=== PATIENT | female | born 1955 | race Caucasian/White ===

== ENCOUNTER → 2020-09-21 | Outpatient (CLI) | payer OTHER | END | disposition home or self-care (01) | LOC: CFH 08:12 | PROVIDERS: ATTEND Nurse Practitioner Family | DX: Z12.31 Encounter for screening mammogram for malignant neoplasm of breast (principal) | CPT/HCPCS: 77063; 77067 ==

== ENCOUNTER 2020-11-26 15:13 | Inpatient (IN) | payer OTHER ==
[~2020-11-26] VITALS: Ht 154.9 cm; Wt 63.9 kg
[2020-11-26] MEDS ORDERED: ROSU5TAB PO (15:54)
[2020-11-26] MEDS ORDERED: LEVO25TA2 PO (15:54)
[2020-11-26] MEDS ORDERED: LISI40TA9 PO (15:55)
[2020-11-26] MEDS ORDERED: HYDR25TA6 PO (15:55)
--- NOTE | 2020-11-26 15:55 | NUR ---
PT IS A 65F COMPLAINING OF RIGHT LEG PAIN X4 DAYS THAT HAS NOW MOVED TO HER ABDOMEN. THE PAIN IS DIFFUSE ACROSSS THE ABDOMEN AND IS A CONSTANT SHARP PAIN. SHE HAS NAUSEA BUT HAS NOT VOMITED. REGULAR BOWEL MOVEMENTS. SPOUSE AT BEDSIDE. CONTINUOUS SP02 AND CYCLING VITALS. CALL LIGHT WITHIN REACH.
[2020-11-26] MEDS ORDERED: ONDANSETRON 2MG/ML, 2ML ONE (16:11)
[2020-11-26] MEDS ORDERED: MORPHINE SULFATE 4 MG/ML, 1ML ONE (16:11)
[2020-11-26] MEDS ORDERED: SODIUM CHLORIDE 0.9% 1,000ML IVBOLUS ONE ×2 (16:30→18:00)
[2020-11-26] MEDS ORDERED: ONDANSETRON 2MG/ML, 2ML IVPush ONE (16:30)
[2020-11-26] MEDS ORDERED: SODIUM CHLORIDE FLUSH 10ML SYR IVF ONE (16:30)
[2020-11-26] MEDS ORDERED: MORPHINE SULFATE 4 MG/ML, 1ML IVPush PRN (16:30)
[2020-11-26 16:33] LABS: BASOPHILS % (AUTO) 0 % (0-1); EOSINOPHILS % (AUTO) 0 % (1-7); LYMPHOCYTES % (AUTO) 4 % (22-44); MEAN CORPUSCULAR HEMOGLOBIN 30.4 pg (27.0-34.8); MEAN CORPUSCULAR HGB CONC 34.1 g/dL (32.4-35.8); MEAN PLATELET VOLUME 8.4 fL (7.4-10.4); MONOCYTES % (AUTO) 9 % (2-9); NEUTROPHILS % (AUTO) 86 % (42-75); PLATELET COUNT 211 x10^3/uL (130-400); RED BLOOD COUNT 3.99 x10^6/uL (3.82-5.3); RED CELL DISTRIBUTION WIDTH 13.9 % (9.6-15.2)
[2020-11-26 16:34] LABS: ALANINE AMINOTRANSFERASE 33 U/L (12-78); ALBUMIN 2.9 g/dL (3.4-5.0); ANION GAP 8 mmol/L (5-15); CALCIUM 8.8 mg/dL (8.5-10.1); CHLORIDE 95 mmol/L (98-107); CREATININE 1.09 mg/dL (0.55-1.02)
[2020-11-26 16:36] LABS: ALKALINE PHOSPHATASE 72 U/L (45-117); BILIRUBIN,TOTAL 0.7 mg/dL (0.2-1.0); TOTAL PROTEIN 7.1 g/dL (6.4-8.2)
--- NOTE | 2020-11-26 16:38 | NUR ---
PT RA SATURATION DROPPED TO 85% ATER MORPHINE. PLACED HER ON 2L O2 NC, PATIENT BACK UP TO 94. URINE SPECIMENT SENT TO LAB.
[2020-11-26 16:56] LABS: MICROSCOPIC INDICATED
--- NOTE | 2020-11-26 17:06 | NUR ---
PT TO CT VIA [facility]
[2020-11-26 17:08] LABS: MD SCAN
[2020-11-26] MEDS ORDERED: OMNIPAQUE 350 MG/ML, 100ML BOTTLE ONE (17:20)
--- NOTE | 2020-11-26 17:24 | NUR ---
PT BACK FROM CT. DENIES NEED FOR SECOND DOSE OF MORPHINE AT THIS TIME
[2020-11-26] MEDS ORDERED: PIPERACILLIN/TAZO/PMX 3.375GM 50 ML ONE ×2 (17:58→18:38)
[2020-11-26] MEDS ORDERED: PIPERACILLIN/TAZO/PMX 3.375GM 50 ML IV ONE (18:00)
--- NOTE | 2020-11-26 18:13 | NUR ---
SECOND LITER OF NS INFUSING, WAITING FOR BLOOD CX TO BE DRAWN BEFORE HANGING ANTIBIOTICS.
--- NOTE | 2020-11-26 18:43 | NUR ---
ANTIBIOTICS HUNG, PT RESTING COMFORTABLY WITH AT BEDSIDE. CALL LIGHT WITHIN REACH. NO FURTHER NEEDS AT THIS TIME
--- NOTE | 2020-11-26 18:53 | NUR ---
REPORT TO JORDAN SCHAFFER.
--- NOTE | 2020-11-26 18:54 | NUR ---
Report from Cecilio Salas. First contact with pt, pt pain 5/10 tolerable no n/v. Requested pt get completly undressed, prepare for OR after surgeon consult. IV abx running no rxn. VSS. Pt is NPO. Will continue to monitor.
--- NOTE | 2020-11-26 19:23 | NUR ---
IR team here to take pt for drain. Requested update from ERP with family on POC as they are unaware of POC.
--- NOTE | 2020-11-26 19:36 | NUR ---
Preprocedural sedation portion done by this RN. Report to IR RN. Family and pt spoke with ERP and IR RN. Report by this RN to med/oral surgery assistant Miriam. Pt to go to IR now, then rm [id number]. provided room number. AIDET provided. All belongings to be tx with pt to IR/floor.
[2020-11-26] MEDS ORDERED: NALOXONE 1 MG/ML, 2ML ONE (19:45)
[2020-11-26] MEDS ORDERED: FLUMAZENIL 0.1 MG/1 ML, 5ML ONE (19:45)
[2020-11-26] MEDS ORDERED: MIDAZOLAM 1 MG/ML, 5ML ONE (19:45)
[2020-11-26] MEDS ORDERED: FENTANYL PF 100 MCG/2ML ONE (19:45)
[2020-11-26] MEDS ORDERED: LIDOCAINE 1%, 20ML ONE (20:00)
[2020-11-26 21:00] VITALS: BP 101/60
[2020-11-26] MEDS: FENTANYL PF 100 MCG/2ML IVPush PRN ×2 (21:44→22:52)
[2020-11-26] MEDS ORDERED: DOCU-131 PO (22:22)
[2020-11-26] MEDS: D5%-0.9% NACL+KCL 20MEQ 1,000 ML IV SCH (22:52)
[2020-11-26] MEDS: POTASSIUM CHLORIDE 40 MEQ in LACTATED RINGERS 1,000 ML IV SCH (23:00)
[2020-11-26] MEDS ORDERED: LEVOTHYROXINE MC SCH (23:00)
[2020-11-26] MEDS ORDERED: ONDANSETRON 2MG/ML, 2ML IVPush PRN (23:00)
[2020-11-26] MEDS ORDERED: morphine SULFATE 10 MG/ML, 1ML IVPush PRN (23:00)
[2020-11-26] MEDS ORDERED: LABETALOL 5MG/ML, 20ML IVPush PRN (23:00)
[2020-11-26] MEDS ORDERED: MELATONIN 5 MG TABLET PO PRN (23:00)
[2020-11-27 00:22] VITALS: BP 96/65
[2020-11-27] MEDS: PIPERACILLIN/TAZO/PMX 3.375GM 50 ML IV SCH ×3 (00:23→17:42)
[2020-11-27] MEDS: FENTANYL PF 100 MCG/2ML IVPush PRN ×4 (00:27→10:35)
[2020-11-27 04:05] VITALS: BP 87/50
[2020-11-27 05:37] LABS: BASOPHILS % (AUTO) 0 % (0-1); EOSINOPHILS % (AUTO) 0 % (1-7); LYMPHOCYTES % (AUTO) 7 % (22-44); MEAN CORPUSCULAR HEMOGLOBIN 30.6 pg (27.0-34.8); MEAN PLATELET VOLUME 8.4 fL (7.4-10.4); MONOCYTES % (AUTO) 6 % (2-9); NEUTROPHILS % (AUTO) 88 % (42-75); PLATELET COUNT 214 x10^3/uL (130-400); RED BLOOD COUNT 3.57 x10^6/uL (3.82-5.3); RED CELL DISTRIBUTION WIDTH 13.9 % (9.6-15.2)
[2020-11-27 05:45] LABS: ANION GAP 8 mmol/L (5-15); CALCIUM 8.3 mg/dL (8.5-10.1); CHLORIDE 105 mmol/L (98-107)
[2020-11-27 05:47] LABS: CREATININE 1.09 mg/dL (0.55-1.02)
[2020-11-27] MEDS ORDERED: LEVOTHYROXINE 25 MCG TABLET PO SCH (06:00)
[2020-11-27 07:02] LABS: MD SCAN
[2020-11-27] MEDS: POTASSIUM CHLORIDE 40 MEQ in LACTATED RINGERS 1,000 ML IV SCH (07:10)
[2020-11-27 08:00] VITALS: BP 93/56
[2020-11-27] MEDS: HYDROCHLOROTHIAZIDE 25 MG TABLET PO SCH (09:00)
[2020-11-27] MEDS: LISINOPRIL 40 MG TABLET PO SCH (09:00)
[2020-11-27] MEDS: D5%-0.9% NACL+KCL 20MEQ 1,000 ML IV SCH (09:29)
[2020-11-27] MEDS ORDERED: FENTANYL PF 250 MCG/5ML ONE (11:10)
[2020-11-27] MEDS ORDERED: MIDAZOLAM 1 MG/ML, 2ML ONE (11:10)
[2020-11-27] MEDS ORDERED: DEXAMETHASONE 4 MG/ML, 1ML ONE (11:43)
[2020-11-27] MEDS ORDERED: VASOPRESSIN 20 UNIT/ML, 1ML ONE ×2 (11:59)
[2020-11-27] MEDS ORDERED: DIPHENHYDRAMINE 50 MG/ML, 1ML IVPush PRN (12:30)
[2020-11-27] MEDS ORDERED: MEPERIDINE/PF 25MG/0.5ML IVPush PRN (12:30)
[2020-11-27] MEDS ORDERED: LABETALOL 5MG/ML, 20ML IV PRN (12:30)
[2020-11-27] MEDS ORDERED: PROMETHAZINE 25 MG/ML, 1ML IVPush PRN (12:30)
[2020-11-27] MEDS ORDERED: HALOPERIDOL 5 MG/ML IV PRN (12:30)
[2020-11-27] MEDS ORDERED: HYDROmorphone 1 MG/ML, 1ML INJ IVPush PRN (12:30)
[2020-11-27] MEDS ORDERED: hydrALAzine 20 MG/ML, 1ML IV PRN (12:30)
[2020-11-27] MEDS ORDERED: NEOSTIGMINE 1 MG/ML, 10ML ONE (12:39)
[2020-11-27] MEDS ORDERED: SUGAMMADEX 200 MG/2 ML IVPush ONE (12:39)
[2020-11-27] MEDS ORDERED: ONDANSETRON 2MG/ML, 2ML ONE (12:39)
[2020-11-27] MEDS ORDERED: GLYCOPYRROLATE 0.2MG/1ML, 5ML ONE (12:39)
[2020-11-27] MEDS ORDERED: ROCURONIUM 10MG/ML,5ML ONE (12:39)
[2020-11-27] MEDS ORDERED: PROPOFOL 10 MG/ML, 20ML ONE (12:39)
[2020-11-27] MEDS ORDERED: CEFAZOLIN 1,000 MG ONE (12:39)
[2020-11-27] MEDS ORDERED: SUCCINYLCHOLINE 20 MG/ML, 10ML ONE (12:39)
[2020-11-27] MEDS ORDERED: FENTANYL PF 100 MCG/2ML ONE (13:06)
[2020-11-27] MEDS ORDERED: MEPERIDINE/PF 25MG/ML,1ML ONE (13:06)
[2020-11-27] MEDS ORDERED: OXYcodone 5 MG/5 ML ORAL.SOL UDC ONE (13:08)
[2020-11-27] MEDS: FENTANYL PF 100 MCG/2ML IV PRN ×3 (13:25→13:40)
[2020-11-27] MEDS ORDERED: LEVO50TA5 PO (13:34)
[2020-11-27] MEDS ORDERED: OXYcodone 5 MG/5 ML ORAL.SOL UDC PO PRN (14:00)
[2020-11-27] MEDS ORDERED: POTASSIUM CHLORIDE 40 MEQ in SODIUM CHLORIDE 0.9% 500 ML IV ONE (15:30)
[2020-11-27 19:33] VITALS: BP 78/49
[2020-11-27 19:45] VITALS: BP 88/52
[2020-11-27] MEDS: ATORVASTATIN 20 MG TABLET PO SCH (21:26)
[2020-11-28] VITALS (7 sets, daily range): BP systolic 85–106; BP diastolic 44–63
[2020-11-28] MEDS: D5%-0.9% NACL+KCL 20MEQ 1,000 ML IV SCH ×3 (00:31→23:51)
[2020-11-28] MEDS: PIPERACILLIN/TAZO/PMX 3.375GM 50 ML IV SCH ×5 (00:31→23:51)
[2020-11-28] MEDS ORDERED: SODIUM CHLORIDE 0.9%, 500ML IVBOLUS ONE (01:25)
[2020-11-28] MEDS: FENTANYL PF 100 MCG/2ML IVPush PRN ×3 (02:14→23:01)
[2020-11-28 05:28] LABS: BASOPHILS % (AUTO) 0 % (0-1); EOSINOPHILS % (AUTO) 0 % (1-7); LYMPHOCYTES % (AUTO) 5 % (22-44); MEAN CORPUSCULAR HEMOGLOBIN 30.1 pg (27.0-34.8); MEAN CORPUSCULAR HGB CONC 33.6 g/dL (32.4-35.8); MEAN PLATELET VOLUME 8.2 fL (7.4-10.4); MONOCYTES % (AUTO) 6 % (2-9); NEUTROPHILS % (AUTO) 89 % (42-75); PLATELET COUNT 232 x10^3/uL (130-400); RED BLOOD COUNT 3.23 x10^6/uL (3.82-5.3); RED CELL DISTRIBUTION WIDTH 13.9 % (9.6-15.2)
[2020-11-28 05:30] LABS: CHLORIDE 110 mmol/L (98-107)
[2020-11-28 05:34] LABS: ANION GAP 4 mmol/L (5-15); CALCIUM 8.4 mg/dL (8.5-10.1); CREATININE 1.01 mg/dL (0.55-1.02)
[2020-11-28] MEDS ORDERED: LEVOTHYROXINE 50 MCG TABLET PO SCH (06:00)
[2020-11-28 06:08] LABS: MD SCAN
[2020-11-28] MEDS: LEVOTHYROXINE 50 MCG TABLET PO SCH (06:21)
[2020-11-28] MEDS ORDERED: LACTATED RINGERS 1,000 ML IVBOLUS ONE (08:00)
[2020-11-28] MEDS: LISINOPRIL 40 MG TABLET PO SCH (09:00)
[2020-11-28] MEDS: HYDROCHLOROTHIAZIDE 25 MG TABLET PO SCH (09:00)
[2020-11-28] MEDS: DOCUSATE 100 MG CAPSULE PO PRN (09:14)
[2020-11-28] MEDS: OXYcodone/APAP 5/325MG TABLET PO PRN ×4 (09:49→23:01)
[2020-11-28] MEDS: SIMETHICONE 80 MG CHEW TAB PO SCH ×3 (12:50→20:24)
[2020-11-28] MEDS: ATORVASTATIN 20 MG TABLET PO SCH (20:23)
[2020-11-29] MEDS: FENTANYL PF 100 MCG/2ML IVPush PRN ×2 (01:26→20:54)
[2020-11-29 03:07] VITALS: BP 92/62
[2020-11-29] MEDS: OXYcodone/APAP 5/325MG TABLET PO PRN ×5 (03:33→20:56)
[2020-11-29 05:03] LABS: BASOPHILS % (AUTO) 0 % (0-1); EOSINOPHILS % (AUTO) 1 % (1-7); LYMPHOCYTES % (AUTO) 9 % (22-44); MEAN CORPUSCULAR HEMOGLOBIN 30.3 pg (27.0-34.8); MEAN CORPUSCULAR HGB CONC 33.4 g/dL (32.4-35.8); MEAN PLATELET VOLUME 7.6 fL (7.4-10.4); MONOCYTES % (AUTO) 7 % (2-9); NEUTROPHILS % (AUTO) 82 % (42-75); PLATELET COUNT 258 x10^3/uL (130-400); RED BLOOD COUNT 3.16 x10^6/uL (3.82-5.3); RED CELL DISTRIBUTION WIDTH 14.2 % (9.6-15.2)
[2020-11-29 05:04] LABS: MD NO
[2020-11-29 05:11] LABS: ANION GAP 3 mmol/L (5-15); CALCIUM 8.8 mg/dL (8.5-10.1); CHLORIDE 110 mmol/L (98-107)
[2020-11-29 05:12] LABS: CREATININE 0.85 mg/dL (0.55-1.02)
[2020-11-29 06:25] VITALS: BP 137/87
[2020-11-29] MEDS: PIPERACILLIN/TAZO/PMX 3.375GM 50 ML IV SCH ×3 (06:28→18:13)
[2020-11-29] MEDS: LEVOTHYROXINE 50 MCG TABLET PO SCH (06:29)
[2020-11-29] MEDS: HYDROCHLOROTHIAZIDE 25 MG TABLET PO SCH (08:13)
[2020-11-29] MEDS: SIMETHICONE 80 MG CHEW TAB PO SCH ×4 (08:13→20:56)
[2020-11-29] MEDS: LISINOPRIL 40 MG TABLET PO SCH (08:13)
[2020-11-29] MEDS: D5%-0.9% NACL+KCL 20MEQ 1,000 ML IV SCH ×2 (08:14→16:21)
[2020-11-29] MEDS: METOCLOPRAMIDE 5 MG/ML, 2ML IV SCH ×3 (10:11→20:56)
[2020-11-29 14:10] VITALS: BP 112/70
[2020-11-29 18:24] VITALS: BP 103/67
[2020-11-29] MEDS: ATORVASTATIN 20 MG TABLET PO SCH (20:56)
[2020-11-30] MEDS: PIPERACILLIN/TAZO/PMX 3.375GM 50 ML IV SCH ×2 (00:15→05:31)
[2020-11-30] MEDS: D5%-0.9% NACL+KCL 20MEQ 1,000 ML IV SCH (01:17)
[2020-11-30] MEDS: OXYcodone/APAP 5/325MG TABLET PO PRN ×5 (01:17→21:07)
[2020-11-30 01:21] VITALS: BP 106/63
[2020-11-30] MEDS: LEVOTHYROXINE 50 MCG TABLET PO SCH (05:31)
[2020-11-30] MEDS: DOCUSATE 100 MG CAPSULE PO PRN ×3 (05:31→16:03)
[2020-11-30 06:00] LABS: MEAN CORPUSCULAR HGB CONC 33.7 g/dL (32.4-35.8); MEAN PLATELET VOLUME 7.5 fL (7.4-10.4); PLATELET COUNT 340 x10^3/uL (130-400); RED BLOOD COUNT 3.61 x10^6/uL (3.82-5.3); RED CELL DISTRIBUTION WIDTH 14.1 % (9.6-15.2)
[2020-11-30 06:13] LABS: ANION GAP 6 mmol/L (5-15); CALCIUM 8.8 mg/dL (8.5-10.1); CHLORIDE 105 mmol/L (98-107)
[2020-11-30 06:14] LABS: CREATININE 0.69 mg/dL (0.55-1.02)
[2020-11-30 06:36] LABS: MD YES
[2020-11-30 06:37] LABS: EOS% (MANUAL) 7 % (1-7); LYMPHS% (MANUAL) 10 % (22-44); METAMYELOCYTES% (MANUAL) 1 % (0-1); MONOS% (MANUAL) 3 % (2-9); MYELOCYTES% (MANUAL) 1 % (0-0); SEGS% (MANUAL) 78 % (42-75)
[2020-11-30 06:38] LABS: <PLATELET ESTIMATE> ADEQUATE; <PLT MORPHOLOGY> NORMAL PLT MORPH; <RBC MORPHOLOGY> NORMAL
[2020-11-30] MEDS: HYDROCHLOROTHIAZIDE 25 MG TABLET PO SCH (09:00)
[2020-11-30 09:24] VITALS: BP 132/79
[2020-11-30] MEDS: SIMETHICONE 80 MG CHEW TAB PO SCH ×4 (10:45→21:07)
[2020-11-30] MEDS: LISINOPRIL 40 MG TABLET PO SCH (10:45)
[2020-11-30] MEDS: metroNIDAZOLE 500 MG TABLET PO SCH ×2 (10:45→18:46)
[2020-11-30] MEDS: METOCLOPRAMIDE 5 MG/ML, 2ML IV SCH ×3 (10:46→21:06)
[2020-11-30] MEDS: CEFTRIAXONE PMX 2GM/50ML 50 ML IVPB SCH (10:46)
[2020-11-30 11:01] LABS: HCT (SEDRATE) 32.5 % (34.6-47.8)
[2020-11-30 14:31] VITALS: BP 115/60
[2020-11-30 19:11] VITALS: BP 121/74
[2020-11-30] MEDS: ATORVASTATIN 20 MG TABLET PO SCH (21:07)
[2020-12-01 00:25] VITALS: BP 124/71
[2020-12-01] MEDS: D5%-0.9% NACL+KCL 20MEQ 1,000 ML IV SCH ×2 (01:09→21:12)
[2020-12-01] MEDS: OXYcodone/APAP 5/325MG TABLET PO PRN ×5 (01:09→22:58)
[2020-12-01] MEDS: metroNIDAZOLE 500 MG TABLET PO SCH ×3 (02:52→19:33)
[2020-12-01] MEDS: LEVOTHYROXINE 50 MCG TABLET PO SCH (05:01)
[2020-12-01 05:37] LABS: BASOPHILS % (AUTO) 0 % (0-1); EOSINOPHILS % (AUTO) 2 % (1-7); LYMPHOCYTES % (AUTO) 11 % (22-44); MEAN CORPUSCULAR HEMOGLOBIN 30.1 pg (27.0-34.8); MEAN CORPUSCULAR HGB CONC 33.7 g/dL (32.4-35.8); MEAN PLATELET VOLUME 7.3 fL (7.4-10.4); MONOCYTES % (AUTO) 8 % (2-9); NEUTROPHILS % (AUTO) 80 % (42-75); PLATELET COUNT 325 x10^3/uL (130-400); RED BLOOD COUNT 3.43 x10^6/uL (3.82-5.3)
[2020-12-01 05:45] LABS: MD NO
[2020-12-01 05:49] LABS: ANION GAP 5 mmol/L (5-15); CALCIUM 8.3 mg/dL (8.5-10.1); CHLORIDE 106 mmol/L (98-107); CREATININE 0.55 mg/dL (0.55-1.02)
[2020-12-01] MEDS ORDERED: POTASSIUM CHLORIDE 20 MEQ TAB.ER.PRT PO ONE (06:30)
[2020-12-01] MEDS ORDERED: POTASSIUM CHLORIDE 40 MEQ in SODIUM CHLORIDE 0.9% 500 ML IV ONE (06:30)
[2020-12-01 07:14] VITALS: BP 122/75
[2020-12-01] MEDS: METOCLOPRAMIDE 5 MG/ML, 2ML IV SCH ×4 (08:34→21:00)
[2020-12-01] MEDS: SIMETHICONE 80 MG CHEW TAB PO SCH ×4 (08:34→21:12)
[2020-12-01] MEDS: LISINOPRIL 40 MG TABLET PO SCH (08:34)
[2020-12-01] MEDS: HYDROCHLOROTHIAZIDE 25 MG TABLET PO SCH (08:36)
[2020-12-01] MEDS: FENTANYL PF 100 MCG/2ML IVPush PRN (09:55)
[2020-12-01] MEDS: CEFTRIAXONE PMX 2GM/50ML 50 ML IVPB SCH (10:35)
[2020-12-01 13:56] VITALS: BP 125/77
[2020-12-01 19:42] VITALS: BP 134/79
[2020-12-01] MEDS: ATORVASTATIN 20 MG TABLET PO SCH (21:12)
[2020-12-02 01:14] VITALS: BP 131/78
[2020-12-02] MEDS: LIDODERM 5% PATCH TD PRN (03:50)
[2020-12-02] MEDS: metroNIDAZOLE 500 MG TABLET PO SCH ×3 (03:50→19:51)
[2020-12-02 05:55] LABS: BASOPHILS % (AUTO) 0 % (0-1); EOSINOPHILS % (AUTO) 2 % (1-7); LYMPHOCYTES % (AUTO) 9 % (22-44); MEAN CORPUSCULAR HEMOGLOBIN 29.9 pg (27.0-34.8); MEAN CORPUSCULAR HGB CONC 33.6 g/dL (32.4-35.8); MEAN PLATELET VOLUME 7.5 fL (7.4-10.4); MONOCYTES % (AUTO) 7 % (2-9); NEUTROPHILS % (AUTO) 82 % (42-75); PLATELET COUNT 369 x10^3/uL (130-400); RED BLOOD COUNT 3.58 x10^6/uL (3.82-5.3); RED CELL DISTRIBUTION WIDTH 14.3 % (9.6-15.2)
[2020-12-02 05:56] LABS: MD NO
[2020-12-02] MEDS: LEVOTHYROXINE 50 MCG TABLET PO SCH (05:57)
[2020-12-02 06:10] LABS: CHLORIDE 107 mmol/L (98-107)
[2020-12-02 06:15] LABS: ANION GAP 4 mmol/L (5-15); CALCIUM 8.5 mg/dL (8.5-10.1); CREATININE 0.55 mg/dL (0.55-1.02)
[2020-12-02 07:00] VITALS: BP 142/82
[2020-12-02] MEDS: LISINOPRIL 40 MG TABLET PO SCH (07:44)
[2020-12-02] MEDS: SIMETHICONE 80 MG CHEW TAB PO SCH ×4 (07:44→21:28)
[2020-12-02] MEDS: METOCLOPRAMIDE 5 MG/ML, 2ML IV SCH ×3 (07:45→21:28)
[2020-12-02] MEDS: HYDROCHLOROTHIAZIDE 25 MG TABLET PO SCH (07:45)
[2020-12-02] MEDS: KETOROLAC 30 MG/1 ML IVPush SCH ×3 (08:29→21:28)
[2020-12-02] MEDS: FAMOTIDINE 20 MG TABLET PO SCH ×2 (08:29→21:28)
[2020-12-02] MEDS ORDERED: POTASSIUM CHLORIDE 40 MEQ in SODIUM CHLORIDE 0.9% 500 ML IV ONE (08:30)
[2020-12-02] MEDS: SUCRALFATE 1 GM/10 ML UDC PO SCH ×3 (11:33→21:28)
[2020-12-02] MEDS: CEFTRIAXONE PMX 2GM/50ML 50 ML IVPB SCH (11:41)
[2020-12-02 13:54] VITALS: BP 136/85
[2020-12-02 20:09] VITALS: BP 146/86
[2020-12-02] MEDS: ATORVASTATIN 20 MG TABLET PO SCH (21:28)
[2020-12-02] MEDS ORDERED: D5%-0.9% NACL+KCL 20MEQ 1,000 ML IV SCH (21:30)
[2020-12-03 01:30] VITALS: BP 158/85
[2020-12-03] MEDS: metroNIDAZOLE 500 MG TABLET PO SCH ×3 (03:01→19:38)
[2020-12-03] MEDS: KETOROLAC 30 MG/1 ML IVPush SCH ×4 (03:01→21:38)
[2020-12-03 05:22] LABS: BASOPHILS % (AUTO) 0 % (0-1); EOSINOPHILS % (AUTO) 3 % (1-7); LYMPHOCYTES % (AUTO) 13 % (22-44); MEAN CORPUSCULAR HEMOGLOBIN 30.4 pg (27.0-34.8); MEAN CORPUSCULAR HGB CONC 33.9 g/dL (32.4-35.8); MEAN PLATELET VOLUME 7.1 fL (7.4-10.4); MONOCYTES % (AUTO) 8 % (2-9); NEUTROPHILS % (AUTO) 76 % (42-75); PLATELET COUNT 353 x10^3/uL (130-400); RED BLOOD COUNT 3.16 x10^6/uL (3.82-5.3)
[2020-12-03 05:25] LABS: MD NO
[2020-12-03 05:34] LABS: ANION GAP 4 mmol/L (5-15); CHLORIDE 109 mmol/L (98-107); CREATININE 0.55 mg/dL (0.55-1.02)
[2020-12-03] MEDS: SUCRALFATE 1 GM/10 ML UDC PO SCH ×4 (06:29→21:37)
[2020-12-03] MEDS: LEVOTHYROXINE 50 MCG TABLET PO SCH (06:30)
[2020-12-03] MEDS: FENTANYL PF 100 MCG/2ML IVPush PRN (06:35)
[2020-12-03] MEDS: METOCLOPRAMIDE 5 MG/ML, 2ML IV SCH ×3 (08:12→21:38)
[2020-12-03] MEDS: LISINOPRIL 40 MG TABLET PO SCH (08:12)
[2020-12-03] MEDS: FAMOTIDINE 20 MG TABLET PO SCH ×2 (08:13→21:37)
[2020-12-03] MEDS: SIMETHICONE 80 MG CHEW TAB PO SCH ×4 (08:13→21:37)
[2020-12-03] MEDS: HYDROCHLOROTHIAZIDE 25 MG TABLET PO SCH (08:13)
[2020-12-03 08:15] VITALS: BP 131/81
[2020-12-03 08:25] VITALS: BP 108/66
[2020-12-03] MEDS: LACTOBACILLUS 1GM/ PACKET PO SCH ×3 (09:44→21:37)
[2020-12-03] MEDS ORDERED: LOPERAMIDE 2 MG CAPSULE PO PRN (10:00)
[2020-12-03] MEDS: CEFTRIAXONE PMX 2GM/50ML 50 ML IVPB SCH ×2 (10:25→11:01)
[2020-12-03 14:00] VITALS: BP 143/81
[2020-12-03] MEDS ORDERED: FUROSEMIDE 40 MG/4 ML IV ONE (14:00)
[2020-12-03] MEDS: POTASSIUM CHLORIDE 20 MEQ TAB.ER.PRT PO SCH (15:49)
[2020-12-03] MEDS: LIDODERM 5% PATCH TD PRN (19:39)
[2020-12-03 19:58] VITALS: BP 132/78
[2020-12-03] MEDS: ATORVASTATIN 20 MG TABLET PO SCH (21:37)
[2020-12-04 00:09] VITALS: BP 129/74
[2020-12-04] MEDS: KETOROLAC 30 MG/1 ML IVPush SCH ×4 (03:22→21:08)
[2020-12-04] MEDS: metroNIDAZOLE 500 MG TABLET PO SCH (03:22)
[2020-12-04 04:35] LABS: BASOPHILS % (AUTO) 1 % (0-1); EOSINOPHILS % (AUTO) 1 % (1-7); LYMPHOCYTES % (AUTO) 9 % (22-44); MEAN CORPUSCULAR HEMOGLOBIN 29.7 pg (27.0-34.8); MEAN CORPUSCULAR HGB CONC 33.9 g/dL (32.4-35.8); MEAN PLATELET VOLUME 6.8 fL (7.4-10.4); MONOCYTES % (AUTO) 8 % (2-9); NEUTROPHILS % (AUTO) 81 % (42-75); PLATELET COUNT 371 x10^3/uL (130-400); RED BLOOD COUNT 3.37 x10^6/uL (3.82-5.3)
[2020-12-04 04:38] LABS: MD NO
[2020-12-04 04:42] LABS: ANION GAP 8 mmol/L (5-15); CHLORIDE 102 mmol/L (98-107); CREATININE 0.68 mg/dL (0.55-1.02)
[2020-12-04] MEDS: LEVOTHYROXINE 50 MCG TABLET PO SCH (05:10)
[2020-12-04] MEDS ORDERED: POTASSIUM CHLORIDE 20 MEQ TAB.ER.PRT PO ONE (06:00)
[2020-12-04] MEDS ORDERED: POTASSIUM CHLORIDE 40 MEQ in SODIUM CHLORIDE 0.9% 500 ML IV ONE ×2 (06:00→10:30)
[2020-12-04] MEDS: SUCRALFATE 1 GM/10 ML UDC PO SCH ×4 (07:14→21:07)
[2020-12-04 08:10] VITALS: BP 129/74
[2020-12-04] MEDS: SIMETHICONE 80 MG CHEW TAB PO SCH ×4 (09:15→21:08)
[2020-12-04] MEDS: LISINOPRIL 40 MG TABLET PO SCH (09:20)
[2020-12-04] MEDS: HYDROCHLOROTHIAZIDE 25 MG TABLET PO SCH (09:20)
[2020-12-04] MEDS: LACTOBACILLUS 1GM/ PACKET PO SCH ×3 (09:20→21:08)
[2020-12-04] MEDS: FAMOTIDINE 20 MG TABLET PO SCH ×2 (09:20→21:08)
[2020-12-04] MEDS: METOCLOPRAMIDE 5 MG/ML, 2ML IV SCH (09:20)
[2020-12-04] MEDS: POTASSIUM CHLORIDE 20 MEQ TAB.ER.PRT PO SCH ×2 (09:26→18:46)
[2020-12-04] MEDS: AMPICILLIN/SULBACTAM 3 GM in SODIUM CHLORIDE 0.9% 100 ML IV SCH ×3 (11:05→23:01)
[2020-12-04 11:25] LABS: TROPONIN I 0.021 ng/mL (0.000-0.045)
[2020-12-04] MEDS ORDERED: OMNIPAQUE 350 MG/ML, 100ML BOTTLE ONE (12:30)
[2020-12-04 13:52] VITALS: BP 142/93
[2020-12-04] MEDS: ACETAMINOPHEN 325 MG TABLET PO PRN (18:46)
[2020-12-04] MEDS: ATORVASTATIN 20 MG TABLET PO SCH (21:08)
[2020-12-04 21:14] VITALS: BP 154/96
[2020-12-04 22:41] LABS: CLOSTRIDIUM DIFFICILE ANTIGEN NEGATIVE; CLOSTRIDIUM DIFFICILE TOXIN NEGATIVE (Negative)
[2020-12-05 01:14] VITALS: BP_SYST 124; BP_SYST 127; BP_DIAS 79; BP_DIAS 82
[2020-12-05] MEDS: FENTANYL PF 100 MCG/2ML IVPush PRN ×2 (01:41→21:55)
[2020-12-05] MEDS: KETOROLAC 30 MG/1 ML IVPush SCH ×4 (02:59→21:55)
[2020-12-05] MEDS: METHOCARBAMOL 750 MG TABLET PO PRN ×2 (03:27→15:45)
[2020-12-05 03:52] LABS: TROPONIN I < 0.015 ng/mL (0.000-0.045)
[2020-12-05] MEDS: AMPICILLIN/SULBACTAM 3 GM in SODIUM CHLORIDE 0.9% 100 ML IV SCH ×4 (05:14→23:48)
[2020-12-05] MEDS: LEVOTHYROXINE 50 MCG TABLET PO SCH (06:27)
[2020-12-05] MEDS: SUCRALFATE 1 GM/10 ML UDC PO SCH ×4 (06:27→21:54)
[2020-12-05] MEDS: ACETAMINOPHEN 325 MG TABLET PO PRN (06:27)
[2020-12-05 08:00] VITALS: BP 136/69
[2020-12-05 08:01] LABS: BASOPHILS % (AUTO) 0 % (0-1); EOSINOPHILS % (AUTO) 0 % (1-7); LYMPHOCYTES % (AUTO) 5 % (22-44); MEAN CORPUSCULAR HEMOGLOBIN 29.8 pg (27.0-34.8); MEAN CORPUSCULAR HGB CONC 33.5 g/dL (32.4-35.8); MEAN PLATELET VOLUME 6.7 fL (7.4-10.4); MONOCYTES % (AUTO) 6 % (2-9); NEUTROPHILS % (AUTO) 89 % (42-75); PLATELET COUNT 402 x10^3/uL (130-400); RED BLOOD COUNT 3.81 x10^6/uL (3.82-5.3); RED CELL DISTRIBUTION WIDTH 14.1 % (9.6-15.2)
[2020-12-05 08:10] LABS: ANION GAP 5 mmol/L (5-15); CALCIUM 8.6 mg/dL (8.5-10.1); CHLORIDE 103 mmol/L (98-107)
[2020-12-05 08:29] LABS: MD SCAN
[2020-12-05] MEDS ORDERED: FAMOTIDINE 40 MG TABLET ONE (09:53)
[2020-12-05] MEDS: POTASSIUM CHLORIDE 20 MEQ TAB.ER.PRT PO SCH ×2 (10:01→15:45)
[2020-12-05] MEDS: FAMOTIDINE 20 MG TABLET PO SCH ×2 (10:01→21:55)
[2020-12-05] MEDS: HYDROCHLOROTHIAZIDE 25 MG TABLET PO SCH (10:01)
[2020-12-05] MEDS: LACTOBACILLUS 1GM/ PACKET PO SCH ×3 (10:01→21:55)
[2020-12-05] MEDS: LISINOPRIL 40 MG TABLET PO SCH (10:01)
[2020-12-05] MEDS: SIMETHICONE 80 MG CHEW TAB PO SCH ×4 (10:01→21:54)
[2020-12-05 13:30] VITALS: BP 137/82
[2020-12-05] MEDS ORDERED: LIDOCAINE 1%, 10ML ONE (13:44)
[2020-12-05] MEDS ORDERED: CATHFLO-ALTEPLASE 2 MG/2 ML CATHFLUSH ONE (16:30)
[2020-12-05] MEDS: LIDODERM 5% PATCH TD PRN (18:42)
[2020-12-05 19:19] VITALS: BP 143/84
[2020-12-05] MEDS: ATORVASTATIN 20 MG TABLET PO SCH (21:54)
[2020-12-06 00:37] VITALS: BP 125/76
[2020-12-06] MEDS: KETOROLAC 30 MG/1 ML IVPush SCH ×4 (04:50→22:39)
[2020-12-06 05:44] LABS: BASOPHILS % (AUTO) 0 % (0-1); EOSINOPHILS % (AUTO) 2 % (1-7); LYMPHOCYTES % (AUTO) 11 % (22-44); MEAN CORPUSCULAR HEMOGLOBIN 29.7 pg (27.0-34.8); MEAN CORPUSCULAR HGB CONC 33.6 g/dL (32.4-35.8); MEAN PLATELET VOLUME 7.2 fL (7.4-10.4); MONOCYTES % (AUTO) 7 % (2-9); NEUTROPHILS % (AUTO) 79 % (42-75); PLATELET COUNT 413 x10^3/uL (130-400); RED BLOOD COUNT 3.57 x10^6/uL (3.82-5.3); RED CELL DISTRIBUTION WIDTH 14.3 % (9.6-15.2)
[2020-12-06 05:46] LABS: MD NO
[2020-12-06] MEDS: LEVOTHYROXINE 50 MCG TABLET PO SCH (05:48)
[2020-12-06] MEDS: AMPICILLIN/SULBACTAM 3 GM in SODIUM CHLORIDE 0.9% 100 ML IV SCH ×4 (05:49→22:39)
[2020-12-06 05:51] LABS: ANION GAP 3 mmol/L (5-15); CALCIUM 8.5 mg/dL (8.5-10.1); CHLORIDE 104 mmol/L (98-107)
[2020-12-06 05:54] LABS: CREATININE 0.83 mg/dL (0.55-1.02)
[2020-12-06 06:25] VITALS: BP 121/77
[2020-12-06] MEDS: SUCRALFATE 1 GM/10 ML UDC PO SCH ×4 (07:39→21:04)
[2020-12-06] MEDS: POTASSIUM CHLORIDE 20 MEQ TAB.ER.PRT PO SCH ×2 (10:41→16:55)
[2020-12-06] MEDS: LACTOBACILLUS 1GM/ PACKET PO SCH ×3 (10:41→21:04)
[2020-12-06] MEDS: FUROSEMIDE 40 MG/4 ML IV SCH (10:41)
[2020-12-06] MEDS: FAMOTIDINE 20 MG TABLET PO SCH ×2 (10:41→21:04)
[2020-12-06] MEDS: LISINOPRIL 40 MG TABLET PO SCH (10:41)
[2020-12-06] MEDS: SIMETHICONE 80 MG CHEW TAB PO SCH ×4 (10:41→21:04)
[2020-12-06] MEDS: HYDROCHLOROTHIAZIDE 25 MG TABLET PO SCH (10:41)
[2020-12-06 13:35] VITALS: BP 133/89
[2020-12-06] MEDS: FENTANYL PF 100 MCG/2ML IVPush PRN (14:53)
[2020-12-06 19:10] VITALS: BP 136/82
[2020-12-06] MEDS: ATORVASTATIN 20 MG TABLET PO SCH (21:04)
[2020-12-06] MEDS: LIDODERM 5% PATCH TD PRN (21:06)
[2020-12-07 00:58] VITALS: BP 121/77
[2020-12-07] MEDS: AMPICILLIN/SULBACTAM 3 GM in SODIUM CHLORIDE 0.9% 100 ML IV SCH ×4 (04:40→22:47)
[2020-12-07] MEDS: KETOROLAC 30 MG/1 ML IVPush SCH (04:40)
[2020-12-07] MEDS: LEVOTHYROXINE 50 MCG TABLET PO SCH (04:58)
[2020-12-07 05:01] LABS: BASOPHILS % (AUTO) 1 % (0-1); EOSINOPHILS % (AUTO) 3 % (1-7); LYMPHOCYTES % (AUTO) 11 % (22-44); MEAN CORPUSCULAR HEMOGLOBIN 29.6 pg (27.0-34.8); MEAN CORPUSCULAR HGB CONC 33.6 g/dL (32.4-35.8); MEAN PLATELET VOLUME 7.2 fL (7.4-10.4); MONOCYTES % (AUTO) 8 % (2-9); NEUTROPHILS % (AUTO) 78 % (42-75); PLATELET COUNT 351 x10^3/uL (130-400); RED BLOOD COUNT 3.09 x10^6/uL (3.82-5.3); RED CELL DISTRIBUTION WIDTH 14.4 % (9.6-15.2)
[2020-12-07 05:03] LABS: MD NO
[2020-12-07 05:13] LABS: ANION GAP 5 mmol/L (5-15); CALCIUM 8.3 mg/dL (8.5-10.1); CHLORIDE 103 mmol/L (98-107); CREATININE 0.75 mg/dL (0.55-1.02)
[2020-12-07 06:44] VITALS: BP 128/82
[2020-12-07] MEDS: SIMETHICONE 80 MG CHEW TAB PO SCH ×4 (08:26→20:05)
[2020-12-07] MEDS: SUCRALFATE 1 GM/10 ML UDC PO SCH ×4 (08:26→20:05)
[2020-12-07] MEDS: LACTOBACILLUS 1GM/ PACKET PO SCH ×3 (08:26→20:16)
[2020-12-07] MEDS: LISINOPRIL 40 MG TABLET PO SCH (08:27)
[2020-12-07] MEDS: POTASSIUM CHLORIDE 20 MEQ TAB.ER.PRT PO SCH ×2 (08:27→16:54)
[2020-12-07] MEDS: HYDROCHLOROTHIAZIDE 25 MG TABLET PO SCH (08:27)
[2020-12-07] MEDS: FAMOTIDINE 20 MG TABLET PO SCH ×2 (08:27→20:05)
[2020-12-07] MEDS: FUROSEMIDE 40 MG/4 ML IV SCH (08:27)
[2020-12-07] MEDS: METHOCARBAMOL 750 MG TABLET PO PRN ×2 (08:27→16:54)
[2020-12-07 13:18] VITALS: BP 129/77
[2020-12-07] MEDS: FENTANYL PF 100 MCG/2ML IVPush PRN (13:46)
[2020-12-07 18:56] VITALS: BP 133/82
[2020-12-07] MEDS: ATORVASTATIN 20 MG TABLET PO SCH (20:05)
[2020-12-07] MEDS: LIDODERM 5% PATCH TD PRN (20:06)
[2020-12-08 01:10] VITALS: BP 128/78
[2020-12-08 04:35] LABS: BASOPHILS % (AUTO) 1 % (0-1); EOSINOPHILS % (AUTO) 4 % (1-7); LYMPHOCYTES % (AUTO) 12 % (22-44); MEAN CORPUSCULAR HEMOGLOBIN 29.7 pg (27.0-34.8); MEAN CORPUSCULAR HGB CONC 34.1 g/dL (32.4-35.8); MEAN PLATELET VOLUME 6.9 fL (7.4-10.4); MONOCYTES % (AUTO) 8 % (2-9); NEUTROPHILS % (AUTO) 76 % (42-75); PLATELET COUNT 378 x10^3/uL (130-400); RED BLOOD COUNT 3.04 x10^6/uL (3.82-5.3); RED CELL DISTRIBUTION WIDTH 14.6 % (9.6-15.2)
[2020-12-08] MEDS: AMPICILLIN/SULBACTAM 3 GM in SODIUM CHLORIDE 0.9% 100 ML IV SCH ×4 (04:36→23:01)
[2020-12-08 04:40] LABS: MD NO
[2020-12-08] MEDS: METHOCARBAMOL 750 MG TABLET PO PRN ×3 (04:43→23:01)
[2020-12-08 04:47] LABS: ANION GAP 6 mmol/L (5-15); CALCIUM 8.2 mg/dL (8.5-10.1); CHLORIDE 100 mmol/L (98-107); CREATININE 0.61 mg/dL (0.55-1.02)
[2020-12-08] MEDS: SUCRALFATE 1 GM/10 ML UDC PO SCH ×4 (06:19→21:03)
[2020-12-08] MEDS: LEVOTHYROXINE 50 MCG TABLET PO SCH (06:19)
[2020-12-08 07:05] VITALS: BP 121/79
[2020-12-08] MEDS: LACTOBACILLUS 1GM/ PACKET PO SCH (08:11)
[2020-12-08] MEDS: FAMOTIDINE 20 MG TABLET PO SCH ×2 (08:11→21:05)
[2020-12-08] MEDS: SIMETHICONE 80 MG CHEW TAB PO SCH ×4 (08:11→21:05)
[2020-12-08] MEDS: LISINOPRIL 40 MG TABLET PO SCH (08:11)
[2020-12-08] MEDS: FUROSEMIDE 40 MG/4 ML IV SCH (08:11)
[2020-12-08] MEDS: POTASSIUM CHLORIDE 20 MEQ TAB.ER.PRT PO SCH ×2 (08:12→16:58)
[2020-12-08] MEDS: HYDROCHLOROTHIAZIDE 25 MG TABLET PO SCH (08:12)
[2020-12-08 14:45] VITALS: BP 129/77
[2020-12-08 18:59] VITALS: BP 129/82
[2020-12-08] MEDS: ATORVASTATIN 20 MG TABLET PO SCH (21:05)
[2020-12-09] MEDS: FENTANYL PF 100 MCG/2ML IVPush PRN ×3 (01:21→04:00)
[2020-12-09 01:25] VITALS: BP 115/73
[2020-12-09] MEDS: AMPICILLIN/SULBACTAM 3 GM in SODIUM CHLORIDE 0.9% 100 ML IV SCH ×4 (04:23→22:34)
[2020-12-09] MEDS: LEVOTHYROXINE 50 MCG TABLET PO SCH (06:12)
[2020-12-09 06:38] VITALS: BP 140/83
[2020-12-09] MEDS: POTASSIUM CHLORIDE 20 MEQ TAB.ER.PRT PO SCH ×2 (09:12→16:28)
[2020-12-09] MEDS: SIMETHICONE 80 MG CHEW TAB PO SCH ×4 (09:12→20:07)
[2020-12-09] MEDS: FAMOTIDINE 20 MG TABLET PO SCH ×2 (09:12→20:07)
[2020-12-09] MEDS: HYDROCHLOROTHIAZIDE 25 MG TABLET PO SCH (09:13)
[2020-12-09] MEDS: FUROSEMIDE 40 MG/4 ML IV SCH (09:13)
[2020-12-09] MEDS: LISINOPRIL 40 MG TABLET PO SCH (09:13)
[2020-12-09] MEDS: SUCRALFATE 1 GM/10 ML UDC PO SCH ×4 (09:13→20:07)
[2020-12-09 11:31] LABS: ANION GAP 7 mmol/L (5-15); CALCIUM 9.4 mg/dL (8.5-10.1); CHLORIDE 97 mmol/L (98-107); CREATININE 0.77 mg/dL (0.55-1.02)
[2020-12-09 13:25] VITALS: BP 116/71
[2020-12-09 19:59] VITALS: BP 121/77
[2020-12-09] MEDS ORDERED: OMNIPAQUE 350 MG/ML, 100ML BOTTLE ONE (20:00)
[2020-12-09] MEDS: ATORVASTATIN 20 MG TABLET PO SCH (20:07)
[2020-12-10 03:21] VITALS: BP 110/73
[2020-12-10] MEDS: AMPICILLIN/SULBACTAM 3 GM in SODIUM CHLORIDE 0.9% 100 ML IV SCH ×4 (04:32→22:59)
[2020-12-10 04:43] LABS: BASOPHILS % (AUTO) 1 % (0-1); EOSINOPHILS % (AUTO) 5 % (1-7); LYMPHOCYTES % (AUTO) 14 % (22-44); MEAN CORPUSCULAR HEMOGLOBIN 29.9 pg (27.0-34.8); MEAN CORPUSCULAR HGB CONC 33.8 g/dL (32.4-35.8); MEAN PLATELET VOLUME 6.9 fL (7.4-10.4); MONOCYTES % (AUTO) 10 % (2-9); NEUTROPHILS % (AUTO) 71 % (42-75); PLATELET COUNT 506 x10^3/uL (130-400); RED BLOOD COUNT 3.09 x10^6/uL (3.82-5.3); RED CELL DISTRIBUTION WIDTH 14.3 % (9.6-15.2)
[2020-12-10 04:48] LABS: MD NO
[2020-12-10] MEDS: SUCRALFATE 1 GM/10 ML UDC PO SCH ×4 (06:01→21:50)
[2020-12-10] MEDS: LEVOTHYROXINE 50 MCG TABLET PO SCH (06:01)
[2020-12-10 06:45] VITALS: BP 117/74
[2020-12-10] MEDS: POTASSIUM CHLORIDE 20 MEQ TAB.ER.PRT PO SCH ×2 (08:00→16:36)
[2020-12-10] MEDS: SIMETHICONE 80 MG CHEW TAB PO SCH ×4 (08:00→21:50)
[2020-12-10] MEDS: FAMOTIDINE 20 MG TABLET PO SCH ×2 (08:33→21:50)
[2020-12-10] MEDS: FUROSEMIDE 40 MG/4 ML IV SCH ×2 (08:34→21:50)
[2020-12-10] MEDS: LISINOPRIL 40 MG TABLET PO SCH (08:34)
[2020-12-10] MEDS: HYDROCHLOROTHIAZIDE 25 MG TABLET PO SCH (08:34)
[2020-12-10 12:17] VITALS: BP 112/73
[2020-12-10] MEDS: METHOCARBAMOL 750 MG TABLET PO PRN (16:37)
[2020-12-10 18:47] VITALS: BP 125/77
[2020-12-10] MEDS: ATORVASTATIN 20 MG TABLET PO SCH (21:50)
[2020-12-10] MEDS: LIDODERM 5% PATCH TD PRN (21:51)
[2020-12-11 00:50] VITALS: BP 113/72
[2020-12-11] MEDS: AMPICILLIN/SULBACTAM 3 GM in SODIUM CHLORIDE 0.9% 100 ML IV SCH ×4 (04:12→22:47)
[2020-12-11] MEDS: METHOCARBAMOL 750 MG TABLET PO PRN ×2 (05:12→19:42)
[2020-12-11] MEDS: SUCRALFATE 1 GM/10 ML UDC PO SCH ×4 (06:07→21:53)
[2020-12-11] MEDS: LEVOTHYROXINE 50 MCG TABLET PO SCH (06:07)
[2020-12-11] MEDS: POTASSIUM CHLORIDE 20 MEQ TAB.ER.PRT PO SCH ×2 (07:53→16:39)
[2020-12-11] MEDS: FUROSEMIDE 40 MG/4 ML IV SCH ×2 (07:54→21:53)
[2020-12-11] MEDS: SIMETHICONE 80 MG CHEW TAB PO SCH ×4 (07:54→21:53)
[2020-12-11] MEDS: LISINOPRIL 40 MG TABLET PO SCH (07:54)
[2020-12-11] MEDS: FAMOTIDINE 20 MG TABLET PO SCH ×2 (07:54→21:53)
[2020-12-11 08:18] VITALS: BP 109/69
[2020-12-11 12:38] VITALS: BP 108/70
[2020-12-11 20:47] VITALS: BP 122/74
[2020-12-11] MEDS: ATORVASTATIN 20 MG TABLET PO SCH (21:53)
[2020-12-12 01:11] VITALS: BP 108/66
[2020-12-12] MEDS: METHOCARBAMOL 750 MG TABLET PO PRN ×2 (04:39→20:17)
[2020-12-12] MEDS: AMPICILLIN/SULBACTAM 3 GM in SODIUM CHLORIDE 0.9% 100 ML IV SCH (04:56)
[2020-12-12 05:17] LABS: BASOPHILS % (AUTO) 1 % (0-1); EOSINOPHILS % (AUTO) 5 % (1-7); HCT (SEDRATE) 29.9 % (34.6-47.8); LYMPHOCYTES % (AUTO) 19 % (22-44); MEAN CORPUSCULAR HEMOGLOBIN 29.3 pg (27.0-34.8); MEAN CORPUSCULAR HGB CONC 33.3 g/dL (32.4-35.8); MEAN PLATELET VOLUME 6.9 fL (7.4-10.4); MONOCYTES % (AUTO) 8 % (2-9); NEUTROPHILS % (AUTO) 67 % (42-75); PLATELET COUNT 661 x10^3/uL (130-400); RED BLOOD COUNT 3.45 x10^6/uL (3.82-5.3); RED CELL DISTRIBUTION WIDTH 14.4 % (9.6-15.2)
[2020-12-12 05:23] LABS: ALANINE AMINOTRANSFERASE 164 U/L (12-78); ALBUMIN 2.1 g/dL (3.4-5.0); ANION GAP 7 mmol/L (5-15); CALCIUM 9.2 mg/dL (8.5-10.1); CHLORIDE 99 mmol/L (98-107); CREATININE 0.85 mg/dL (0.55-1.02)
[2020-12-12 05:27] LABS: MD NO
[2020-12-12 05:30] LABS: ALKALINE PHOSPHATASE 87 U/L (45-117); BILIRUBIN,TOTAL 0.3 mg/dL (0.2-1.0); TOTAL PROTEIN 6.9 g/dL (6.4-8.2)
[2020-12-12] MEDS: SUCRALFATE 1 GM/10 ML UDC PO SCH ×4 (06:11→19:57)
[2020-12-12] MEDS: LEVOTHYROXINE 50 MCG TABLET PO SCH (06:11)
[2020-12-12 07:20] VITALS: BP 112/71
[2020-12-12] MEDS: LISINOPRIL 40 MG TABLET PO SCH (07:37)
[2020-12-12] MEDS: SIMETHICONE 80 MG CHEW TAB PO SCH ×4 (07:37→19:58)
[2020-12-12] MEDS: FAMOTIDINE 20 MG TABLET PO SCH ×2 (07:37→19:56)
[2020-12-12] MEDS: POTASSIUM CHLORIDE 20 MEQ TAB.ER.PRT PO SCH ×2 (07:37→16:05)
[2020-12-12] MEDS: FUROSEMIDE 40 MG/4 ML IV SCH ×2 (07:37→19:56)
[2020-12-12] MEDS: metroNIDAZOLE 500 MG TABLET PO SCH ×2 (10:05→17:32)
[2020-12-12] MEDS: CEFTRIAXONE PMX 2GM/50ML 50 ML IVPB SCH (10:05)
[2020-12-12 13:15] VITALS: BP 100/70
[2020-12-12] MEDS ORDERED: LIDOCAINE 1%, 10ML ONE (13:43)
[2020-12-12] MEDS: FENTANYL PF 100 MCG/2ML IVPush PRN (14:57)
[2020-12-12] MEDS ORDERED: LORazepam 1MG TABLET PO ONE (16:30)
[2020-12-12 18:22] VITALS: BP 97/68
[2020-12-12] MEDS: ATORVASTATIN 20 MG TABLET PO SCH (19:56)
[2020-12-12] MEDS: KETOROLAC 30 MG/1 ML IVPush PRN (20:14)
[2020-12-13 00:54] VITALS: BP 97/55
[2020-12-13] MEDS: metroNIDAZOLE 500 MG TABLET PO SCH ×3 (01:13→17:14)
[2020-12-13 01:44] LABS: INTERNATIONAL NORMALIZED RATIO 1.11 (0.93-1.1); PROTHROMBIN TIME 11.9 Seconds (9.6-11.5)
[2020-12-13] MEDS: LEVOTHYROXINE 50 MCG TABLET PO SCH (05:48)
[2020-12-13] MEDS: SUCRALFATE 1 GM/10 ML UDC PO SCH ×4 (05:48→22:55)
[2020-12-13 07:20] VITALS: BP 99/67
[2020-12-13] MEDS: POTASSIUM CHLORIDE 20 MEQ TAB.ER.PRT PO SCH ×2 (07:21→15:41)
[2020-12-13] MEDS: LISINOPRIL 40 MG TABLET PO SCH (07:21)
[2020-12-13] MEDS: FUROSEMIDE 40 MG/4 ML IV SCH ×2 (07:21→19:38)
[2020-12-13] MEDS: FAMOTIDINE 20 MG TABLET PO SCH ×2 (07:21→19:38)
[2020-12-13] MEDS: SIMETHICONE 80 MG CHEW TAB PO SCH ×4 (07:21→22:55)
[2020-12-13] MEDS: CEFTRIAXONE PMX 2GM/50ML 50 ML IVPB SCH (10:03)
[2020-12-13 13:15] VITALS: BP 100/67
[2020-12-13] MEDS: KETOROLAC 30 MG/1 ML IVPush PRN (13:30)
[2020-12-13 18:40] VITALS: BP 118/72
[2020-12-13] MEDS: ATORVASTATIN 20 MG TABLET PO SCH (19:38)
[2020-12-14 01:15] VITALS: BP 121/78
[2020-12-14] MEDS: metroNIDAZOLE 500 MG TABLET PO SCH ×3 (01:47→16:52)
[2020-12-14] MEDS: LEVOTHYROXINE 50 MCG TABLET PO SCH (04:22)
[2020-12-14] MEDS: KETOROLAC 30 MG/1 ML IVPush PRN ×2 (05:40→14:58)
[2020-12-14] MEDS: SUCRALFATE 1 GM/10 ML UDC PO SCH ×4 (05:40→22:12)
[2020-12-14 07:11] VITALS: BP 108/70
[2020-12-14] MEDS ORDERED: FENTANYL PF 100 MCG/2ML IVPush ONE (09:00)
[2020-12-14] MEDS: POTASSIUM CHLORIDE 20 MEQ TAB.ER.PRT PO SCH ×2 (09:03→16:52)
[2020-12-14] MEDS: FUROSEMIDE 40 MG/4 ML IV SCH ×2 (09:03→22:13)
[2020-12-14] MEDS: FAMOTIDINE 20 MG TABLET PO SCH ×2 (09:03→22:13)
[2020-12-14] MEDS: LISINOPRIL 40 MG TABLET PO SCH (09:03)
[2020-12-14] MEDS: SIMETHICONE 80 MG CHEW TAB PO SCH ×4 (09:03→22:13)
[2020-12-14 09:11] VITALS: BP 117/71
[2020-12-14] MEDS: CEFTRIAXONE PMX 2GM/50ML 50 ML IVPB SCH (10:50)
[2020-12-14 12:14] VITALS: BP 100/66
[2020-12-14] MEDS: CLOTRIMAZOLE TROCHES 10 MG PO SCH ×3 (14:30→22:13)
[2020-12-14] MEDS ORDERED: LIDOCAINE 1%, 10ML ONE (15:31)
[2020-12-14 19:23] VITALS: BP 135/76
[2020-12-14] MEDS: ATORVASTATIN 20 MG TABLET PO SCH (22:13)
[2020-12-15 00:22] VITALS: BP 119/75
[2020-12-15] MEDS: metroNIDAZOLE 500 MG TABLET PO SCH ×3 (01:59→17:15)
[2020-12-15] MEDS: LEVOTHYROXINE 50 MCG TABLET PO SCH (06:06)
[2020-12-15] MEDS: CLOTRIMAZOLE TROCHES 10 MG PO SCH ×4 (06:06→17:15)
[2020-12-15] MEDS: SUCRALFATE 1 GM/10 ML UDC PO SCH ×3 (06:06→16:00)
[2020-12-15 07:35] VITALS: BP 119/79
[2020-12-15] MEDS: POTASSIUM CHLORIDE 20 MEQ TAB.ER.PRT PO SCH ×2 (08:56→17:00)
[2020-12-15] MEDS: FUROSEMIDE 40 MG/4 ML IV SCH (08:56)
[2020-12-15] MEDS: LISINOPRIL 40 MG TABLET PO SCH (08:56)
[2020-12-15] MEDS: FAMOTIDINE 20 MG TABLET PO SCH (08:56)
[2020-12-15] MEDS: SIMETHICONE 80 MG CHEW TAB PO SCH ×3 (08:56→17:11)
[2020-12-15 09:24] LABS: ALANINE AMINOTRANSFERASE 64 U/L (12-78); ALBUMIN 2.4 g/dL (3.4-5.0); CALCIUM 9.7 mg/dL (8.5-10.1); CREATININE 0.92 mg/dL (0.55-1.02)
[2020-12-15 09:25] LABS: ALKALINE PHOSPHATASE 85 U/L (45-117); BILIRUBIN,TOTAL 0.2 mg/dL (0.2-1.0); TOTAL PROTEIN 7.5 g/dL (6.4-8.2)
[2020-12-15 09:41] LABS: ANION GAP 4 mmol/L (5-15); CHLORIDE 104 mmol/L (98-107)
[2020-12-15] MEDS: CEFTRIAXONE PMX 2GM/50ML 50 ML IVPB SCH (10:21)
[2020-12-15] MEDS ORDERED: SIME80TA16 PO (11:53)
[2020-12-15] MEDS ORDERED: POTA20TA6 PO (11:53)
[2020-12-15] MEDS ORDERED: SUCR1ORA5 PO (11:53)
[2020-12-15] MEDS ORDERED: FAMO20TA7 PO (11:53)
[2020-12-15] MEDS ORDERED: FURO20TA3 PO (11:54)
[2020-12-15] MEDS ORDERED: TRAM50TA2 PO (11:56)
[2020-12-15 13:25] VITALS: BP 119/72
[2020-12-15] MEDS ORDERED: CLOT10TR PO (17:11)
[2020-12-16] MEDS ORDERED: FAMOTIDINE 20 MG TABLET PO SCH (09:00)
== END 2020-12-15 17:50 | disposition home health service (06) | DRG 853 ==
LOC: ED 18:58 → EDIP 19:02 → 4NE 20:57
PROVIDERS: ADMIT Family Medicine; ATTEND Family Medicine
PROC: 0W9G3ZZ Drainage of Peritoneal Cavity, Percutaneous Approach (ICD-10-PCS; 2020-11-26)
PROC: 3E1M38Z Irrigation of Peritoneal Cavity using Irrigating Substance, Percutaneous Approach (ICD-10-PCS; 2020-11-27)
PROC: 0DTJ0ZZ Resection of Appendix, Open Approach (ICD-10-PCS; principal; 2020-11-27 10:45)
PROC: 02HV33Z Insertion of Infusion Device into Superior Vena Cava, Percutaneous Approach (ICD-10-PCS; 2020-12-03)
PROC: B548ZZA Ultrasonography of Superior Vena Cava, Guidance (ICD-10-PCS; 2020-12-03)
PROC: 0W993ZZ Drainage of Right Pleural Cavity, Percutaneous Approach (ICD-10-PCS; 2020-12-05)
PROC: 02PYX3Z Removal of Infusion Device from Great Vessel, External Approach (ICD-10-PCS; 2020-12-06)
PROC: 02HV33Z Insertion of Infusion Device into Superior Vena Cava, Percutaneous Approach (ICD-10-PCS; 2020-12-06)
PROC: B518ZZA Fluoroscopy of Superior Vena Cava, Guidance (ICD-10-PCS; 2020-12-06)
PROC: 0W9930Z Drainage of Right Pleural Cavity with Drainage Device, Percutaneous Approach (ICD-10-PCS; 2020-12-12)
PROC: BB4BZZZ Ultrasonography of Pleura (ICD-10-PCS; 2020-12-12)
PROC: 0W9B3ZZ Drainage of Left Pleural Cavity, Percutaneous Approach (ICD-10-PCS; 2020-12-14)
PROC: BB4BZZZ Ultrasonography of Pleura (ICD-10-PCS; 2020-12-14)
DX: A41.2 Sepsis due to unspecified staphylococcus (principal); K35.21 Acute appendicitis with generalized peritonitis, with abscess; J90 Pleural effusion, not elsewhere classified; N17.9 Acute kidney failure, unspecified; N39.0 Urinary tract infection, site not specified; B37.9 Candidiasis, unspecified; E03.9 Hypothyroidism, unspecified; E78.5 Hyperlipidemia, unspecified; E87.6 Hypokalemia; R73.9 Hyperglycemia, unspecified; I10 Essential (primary) hypertension; Z20.822 Contact with and (suspected) exposure to COVID-19; Z82.0 Family history of epilepsy and other diseases of the nervous system; Z82.49 Family history of ischemic heart disease and other diseases of the circulatory system
CPT/HCPCS: 32555; 32557; 36415; 75989; 77001; 83986; 89051; 96361; 96374; 96375; 99285; J3490; 36573; 49406; 71045; 71046; 71260; 74177; 80048; 80053; 81001; 83036; 83605; 83615; 83690; 83735; 83880; 84100; 84484; 85025; 85610; 85651; 86140; 87015; 87040; 87070; 87075; 87076; 87077; 87086; 87102; 87116; 87176; 87186; 87205; 87206; 87324; 87635; 88304; 93005; 93306; 93970; C1894; G0378; J0295; J0690; J0696; J1100; J1885; J1940; J2175; J2250; J2405; J2543; J2704; J2710; J2997; J3010; J3480; Q9967; C1729; C1751; C1765; C1769; J0330; J2270; J2310; J2765; J7030; J7040; J7120

== ENCOUNTER → 2020-12-29 | Outpatient (CLI) | payer OTHER ==
[~2020-12-29] MED LIST: CLOT10TR PO; DOCU-131 PO; FAMO20TA7 PO; FURO20TA3 PO; HYDR25TA6 PO; LEVO25TA2 PO; LEVO50TA5 PO; LISI40TA9 PO; OMNIPAQUE 350 MG/ML, 100ML BOTTLE ONE; POTA20TA6 PO; ROSU5TAB PO; SIME80TA16 PO; SUCR1ORA5 PO; TRAM50TA2 PO
== END | disposition home or self-care (01) ==
LOC: CFH 13:14
PROVIDERS: ATTEND Internal Medicine Infectious Disease
DX: N28.1 Cyst of kidney, acquired (principal); K76.89 Other specified diseases of liver; J90 Pleural effusion, not elsewhere classified; J98.11 Atelectasis
CPT/HCPCS: 74177; Q9967